=== PATIENT | female | born 1985 | race Caucasian/White ===

== ENCOUNTER 2017-07-09 01:05 | Inpatient (IN) | payer OTHER ==
[2017-07-09] MEDS ORDERED: Sodium Chloride 0.9% 10 ML Syringe FLUSH PRN (01:26)
[2017-07-09] MEDS ORDERED: Ampicillin 2 GM in Sodium Chloride 0.9% 100 ML IV ONE (01:26)
[2017-07-09] MEDS ORDERED: Nalbuphine 20 MG/1 ML Amp IVPUSH PRN (01:26)
[2017-07-09] MEDS ORDERED: Sodium Chloride 0.9% 100 ML ONE (01:28)
[2017-07-09] MEDS ORDERED: Lactated Ringers 1,000 ML IV SCH (01:30)
--- NOTE | 2017-07-09 02:26 | PCM.LDHP ---
<Mali Rooney - Last Filed: 07/09/17 08:24> L&D History of Present Illness - General Admit Problem/Dx: Patient Status Order with Admit Dx/Problem 07/09/17 01:27 Patient Status [ADT] Routine Admission Diagnosis/Problem Admission Diagnosis/Problem Normal labor Source of Information: Old Records History Limitations: Reports: No Limitations - History of Present Illness Introduction:: Patient is a 31 yo female who was admitted in labor. The patient has since delivered a baby boy via spontaneous vaginal delivery. The patient is now a 2-0-1-2. GBS +, ampicillin was given, O+. The patient had normal care, and screening was normal. The patient has a history of HSIL and cervical dysplasia Timing/Duration: Reports: sudden onset Location, : Reports: Uterus - Related Data Allergies/Adverse Reactions: Allergies Allergy/AdvReac Type Severity Reaction Status Date / Time No Known Allergies Allergy Verified 07/09/17 01:25 Home Medications: Home Meds Vit #108/Iron/FA [ One Tablet] 1 each PO DAILY 03/01/14 [ History] Past Medical History - Past Health History Medical/Surgical History: Denies Medical/Surgical History : 3 Para: 2 Other OB/BYN History: Cervical dysplasia - Past Surgical History Female Surgical History: Reports: D&CBAR Social & Family History - Tobacco Use Smoking Status *Q: Former Smoker Used Tobacco, but Quit: Yes Month Tobacco Last Used: unknown Second Hand Smoke Exposure: No - Alcohol Use Days Per Week of Alcohol Use: 0 Number of Drinks Per Day: 0 Total Drinks Per Week: 0 - Recreational Drug Use Recreational Drug Use: No H&P Review of Systems - Review of Systems: Review Of Systems: See Below General: Reports: No Symptoms HEENT: Reports: No Symptoms Pulmonary: Reports: No Symptoms Cardiovascular: Reports: No Symptoms Gastrointestinal: Reports: No Symptoms Genitourinary: Reports: No Symptoms Musculoskeletal: Reports: No Symptoms Skin: Reports: No Symptoms Psychiatric: Reports: No Symptoms Neurological: Reports: No Symptoms Hematologic/Lymphatic: Reports: No Symptoms Immunologic: Reports: No Symptoms L&D Exam - Exam Exam: See Below - Vital Signs Weight: 74.389 kg - Exam General: Alert, Oriented, Cooperative HEENT: Conjunctiva Clear, EACs Clear, EOMI, Hearing Intact, Mucosa Moist & [place] , Normal Nasal Septum, Pupils Equal Neck: Supple, Trachea Midline Lungs: Clear to Auscultation, Normal Respiratory Effort Cardiovascular: Regular Rate, Regular Rhythm Back Exam: Normal Inspection, Full Range of Motion Extremities: Normal Inspection, Normal Range of Motion, Non-Tender, No Pedal Edema, Normal Capillary Refill Skin: Warm, Dry, Intact Psychiatric: Alert, Normal Affect, Normal Mood Orders Last 24hrs: Active Orders 24 hr Category Date Time Status Patient Status [ADT] Routine ADT 07/09/17 01:27 Active Activity as Tolerated [RC] PFP Care 07/09/17 01:26 Active Communication Order [RC] ASDIRECTED Care 07/09/17 01:26 Active Heart Tones [RC] ASDIRECTED Care 07/09/17 01:27 Active Notify Provider [RC] PFP Care 07/09/17 01:26 Active Notify Provider [RC] PRN Care 07/09/17 01:26 Active Peripheral IV Care [RC] . DIRECTED Care 07/09/17 01:27 Active Vital Signs [RC] PER UNIT ROUTINE Care 07/09/17 01:26 Active Lactated Ringers [Ringers, Lactated] 1,000 ml Med 07/09/17 01:30 Active IV ASDIRECTED Nalbuphine [Nubain] Med 07/09/17 01:26 Active 10 mg IVPUSH Q2H PRN Sodium Chloride 0.9% [Saline Flush] Med 07/09/17 01:26 Active 10 ml FLUSH ASDIRECTED PRN Electronic Heart Tones Ext w TOCO [WOMSER] Oth 07/09/17 01:26 Ordered Routine Electronic Heart Tones Internal [WOMSER] Per Unit Oth 07/09/17 01:26 Ordered Routine Peripheral IV Insertion Adult [OM.PC] Routine Oth 07/09/17 01:26 Ordered Resuscitation Status Routine Resus Stat 07/09/17 01:26 Ordered Medication Orders Lactated Ringer's (Ringers, Lactated) 1,000 mls @ 100 mls/hr IV ASDIRECTED CHARITO Nalbuphine HCl (Nubain) 10 mg IVPUSH Q2H PRN PRN Reason: Pain (moderate 4-6) Sodium Chloride (Saline Flush) 10 ml FLUSH ASDIRECTED PRN PRN Reason: Keep Vein Open Assessment/Plan Comment:: Patient is a 31 yo female who was admitted in labor. The patient has since delivered a baby boy via spontaneous vaginal delivery. The patient is now a 2-0-1-2. GBS +, ampicillin was given, O+. The patient had normal care, and screening was normal. The patient has a history of HSIL and cervical dysplasia Plan: Run oxytocin Routine post- cares Pain management with ibuprofen/acetaminophen CBC in the AM <Conner Browne F - Last Filed: 07/09/17 11:14> L&D History of Present Illness - General Admit Problem/Dx: Admission Diagnosis/Problem Admission Diagnosis/Problem Normal labor H&P Review of Systems - Review of Systems: Review Of Systems: See Below L&D Exam - Exam Exam: See Below - Vital Signs Vital Signs: Last Vital Signs Temp 36.8 C 07/09/17 04:00 Pulse 84 07/09/17 04:00 Resp 18 07/09/17 04:00 BP 124/76 07/09/17 04:00 Pulse Ox Problem List Initiated/Reviewed/Updated: Yes Orders Last 24hrs: Active Orders 24 hr Category Date Time Status Activity as Tolerated [RC] PER UNIT ROUTINE Care 07/09/17 02:29 Active Activity as Tolerated [RC] PFP Care 07/09/17 01:26 Inactive Communication Order [RC] ASDIRECTED Care 07/09/17 01:26 Inactive Heart Tones [RC] ASDIRECTED Care 07/09/17 01:27 Inactive Notify Provider Vital Signs [RC] ASDIRECTED Care 07/09/17 02:29 Active Notify Provider [RC] PFP Care 07/09/17 01:26 Inactive Notify Provider [RC] PRN Care 07/09/17 01:26 Inactive Peripheral IV Care [RC] . DIRECTED Care 07/09/17 01:27 Inactive Vital Signs [RC] ASDIRECTED Care 07/09/17 02:29 Active Vital Signs [RC] PER UNIT ROUTINE Care 07/09/17 01:26 Inactive Regular Diet [DIET] Diet 07/09/17 Dinner Active CBC W/O DIFF,HEMOGRAM [HEME] Routine Lab 07/10/17 02:24 Ordered Acetaminophen [Tylenol] Med 07/09/17 02:29 Active 650 mg PO Q4H PRN Benzocaine/Menthol [Dermoplast Pain Relief [place]] Med 07/09/17 02:29 Active See Dose Instructions TOP ASDIRECTED PRN Docusate Sodium [Colace] Med 07/09/17 02:29 Active 100 mg PO BID PRN Ibuprofen [Motrin] Med 07/09/17 02:29 Active 600 mg PO Q4H PRN Lanolin [Lansinoh HPA] Med 07/09/17 02:29 Active See Dose Instructions TOP ASDIRECTED PRN Vit with Ca/FA/Iron [ Plus Iron] Med 07/09/17 09:00 Active 1 each PO DAILY Witmickey Hamilton [Tucks] Med 07/09/17 02:29 Active 1 pad TOP ASDIRECTED PRN Assess Lochia [WOMSER] Per Unit Routine Ot 07/09/17 02:29 Ordered Assess Uterine Involution [WOMSER] Per Unit Routine Ot 07/09/17 02:29 Ordered Breast Pump [WOMSER] Per Unit Routine Ot 07/09/17 02:29 Ordered Heat Therapy [OM.PC] PRN Ot 07/09/17 02:30 Ordered Heat Therapy [OM.PC] PRN Ot 07/10/17 02:30 Ordered Ice Therapy [OM.PC] Per Unit Routine Ot 07/09/17 02:29 Ordered Medication Administration Instruction [OM.PC] Routine Ot 07/09/17 02:29 Ordered Perineal Care [OM.PC] Per Unit Routine Ot 07/09/17 02:29 Ordered Sitz Bath [OM.PC] Per Unit Routine Ot 07/09/17 02:29 Ordered Resuscitation Status Routine Resus Stat 07/09/17 01:26 Ordered Medication Orders Acetaminophen (Tylenol) 650 mg PO Q4H PRN PRN Reason: mild pain or fever Benzocaine/Menthol (Dermoplast Pain Relief [place]) 0 gm TOP ASDIRECTED PRN PRN Reason: Perineal Comfort Measure Last Admin: 07/09/17 03:14 Dose: 1 applic Docusate Sodium (Colace) 100 mg PO BID PRN PRN Reason: Constipation Emollient Ointment (Lansinoh Hpa) 0 gm TOP ASDIRECTED PRN PRN Reason: Sore Nipples Ibuprofen (Motrin) 600 mg PO Q4H PRN PRN Reason: Mild pain or fever Last Admin: 07/09/17 03:13 Dose: 600 mg Prenat Multivit/[place]/Iron/Folic Ac ( Plus Iron) 1 each PO DAILY CHARITO Hamilton ([facility]) 1 pad TOP ASDIRECTED PRN PRN Reason: Hemorrhoid pain Last Admin: 07/09/17 03:15 Dose: 1 applic
[2017-07-09] MEDS ORDERED: Acetaminophen 325 MG Tab PO PRN (02:29)
[2017-07-09] MEDS ORDERED: Benzocaine/Menthol 20%-0.5% Spray 56 GM Canister TOP PRN (02:29)
[2017-07-09] MEDS ORDERED: Docusate Sodium 100 MG Cap PO PRN (02:29)
[2017-07-09] MEDS ORDERED: Lanolin 100% Cream 7 GM Tube TOP PRN (02:29)
[2017-07-09] MEDS ORDERED: Witch Hazel Medicated Pads 100/Jar TOP PRN (02:29)
--- NOTE | 2017-07-09 02:29 | PCM.SN ---
- Free Text/Narrative Note: Annie is a 31-year-old 3 now para 2012 female who is admitted in labor and delivery at complete cervical dilation, bag salomon intact uriah every 3 minutes and feeling pressure and feeling like she had to push. She apparently had been 7 cm in clinic upon last evaluation. She is group B strep positive and had been informed of her group B positive status and the recommendation for group B strep prophylaxis and induction of labor was offered to the patient. She declined at that time. She is 40-2/7 weeks gestational age at the time of onset of her labor. Patient's membranes ruptured spontaneously resulting in clear amniotic fluid. She delivered a viable, garcia, 3570 g (7 pound 13.9 ounce) male infant with Apgars of 7 and 9 and a length of 19.0 inches. She delivered over a second- degree laceration with a slight left labia majora laceration. Baby delivered in an occiput anterior position. The baby was placed on mom's abdomen. Cord was allowed to pulsate until done and then was cut. Cord blood was obtained per routine. The area of perineal laceration and labial laceration were infiltrated with approximately 15 mL of lidocaine 1%. The laceration was closed in a routine episiotomy fashion with the exception of left labial laceration which was closed with approximately 4-5 per official simple interrupted stitches. Placenta delivered intact in a Otto presentation. Some membranes did separate from the placenta at the end but were removed without problems. Umbilical cord had 3 vessels. Patient was given Pitocin IV to facilitate increase in uterine tone and decreased risk of bleeding. Estimated blood loss was 200 mL. Condition : Good. Patient plans to breast-feed
[2017-07-09] MEDS: Ibuprofen 600 MG Tab PO PRN ×2 (03:13→17:54)
[2017-07-09] MEDS ORDERED: Lidocaine 1% 50 ML MDV ONE (03:15)
[2017-07-09] MEDS: Prenatal Multivitamin with Calcium/Folic Acid/Iron Tab PO SCH (15:30)
[2017-07-10] MEDS: Ibuprofen 600 MG Tab PO PRN ×2 (03:53→16:50)
[2017-07-10] MEDS: Prenatal Multivitamin with Calcium/Folic Acid/Iron Tab PO SCH (09:55)
--- NOTE | 2017-07-10 10:47 | PCM.SN ---
- Free Text/Narrative Note: 31 yo female , post- day 1. She is O+ and group B strep positive. Patient has a history of cervical dysplasia and HSIL. Patient reports no complaints and is doing well. The patient's pain is well controlled by ibuprofen. She had inadequate antibiotic prophylaxis during labor. Will continue to monitor patient and baby. Plan to discharge tomorrow 07/11/17 if no acute changes occur.
[2017-07-11 03:13] VITALS: BP 120/57
--- NOTE | 2017-07-11 06:52 | PCM.DCSUM1 ---
Discharge Summary - Hospital Course Free Text/Narrative:: Annie is a 31-year-old 3 now para 2012 female who is admitted in labor and delivery at complete cervical dilation, bag salomon intact uriah every 3 minutes and feeling pressure and feeling like she had to push. She apparently had been 7 cm in clinic upon last evaluation. She is group B strep positive and had been informed of her group B positive status and the recommendation for group B strep prophylaxis and induction of labor was offered to the patient. She declined at that time. She is 40-2/7 weeks gestational age at the time of onset of her labor. Patient's membranes ruptured spontaneously resulting in clear amniotic fluid. She delivered a viable, garcia, 3570 g (7 pound 13.9 ounce) male infant with Apgars of 7 and 9 and a length of 19.0 inches. She delivered over a second- degree laceration with a slight left labia majora laceration. Baby delivered in an occiput anterior position. The baby was placed on mom's abdomen. Cord was allowed to pulsate until done and then was cut. Cord blood was obtained per routine. The area of perineal laceration and labial laceration were infiltrated with approximately 15 mL of lidocaine 1%. The laceration was closed in a routine episiotomy fashion with the exception of left labial laceration which was closed with approximately 4-5 per official simple interrupted stitches. Placenta delivered intact in a Otto presentation. Some membranes did separate from the placenta at the end but were removed without problems. Umbilical cord had 3 vessels. Patient was given Pitocin IV to facilitate increase in uterine tone and decreased risk of bleeding. Estimated blood loss was 200 mL. patient has done well. She is having minimal lochia, is nursing without concerns, ambulating well and voiding without problems. She is desiring discharge today. Follow-up CBC was within normal limits for the period - Discharge Data Discharge Date: 07/11/17 Discharge Disposition: Home, Self-Care 01 Condition: Good - Patient Instructions Diet: Regular Diet as Tolerated (Nursing diet with increased calcium and calories) Activity: As Tolerated (No intercourse or tampons until bleeding resolves.) Driving: May Drive Today, Do Not Drive Showering/Bathing: May Shower (May take a bath) Notify Provider of: Fever, Increased Pain, Swelling and Redness, Drainage, Nausea and/or Vomiting - Discharge Plan Home Medications: Home Meds Vit #108/Iron/FA [ One Tablet] 1 each PO DAILY 03/01/14 [ History] Acetaminophen [Tylenol] 650 mg PO Q4H PRN tablet 07/11/17 [Rx] Ibuprofen [IJD: Ibuprofen] 600 mg PO Q4H PRN tablet 07/11/17 [Rx] Referrals: Taylor Valdez MD [Physician] - (Return to clinicDr. Valdez-3-4 weeks.) - Discharge Summary/Plan Comment DC Time >30 min.: No Discharge Summary/Plan Comment: Discharge instructions: 1. Discharge home 2. Diet, activity and follow-up discussed with patient. Recommend nursing diet with increased calories and calcium. 3. Precautions given concern increased pain, bleeding, temperature, signs/ symptoms of DVT/PE. 4. Medications per home medication was printed, discussed with and given to the patient. 5. Return to clinic-Dr. Valdez-3-4 weeks weeks. Diagnosis: Term -delivered Condition: Good - Patient Data Vitals - Most Recent: Last Vital Signs Temp 36.2 C 07/11/17 03:07 Pulse 76 07/11/17 03:07 Resp 16 07/11/17 03:07 BP 120/57 L 07/11/17 03:07 Pulse Ox 99 07/11/17 03:07 Weight - Most Recent: 74.389 kg I&O - Last 24 hours: Intake & Output 07/10/17 07/10/17 07/11/17 14:59 22:59 06:59 Intake Total 200 Balance 200 Med Orders - Current: Current Medications Acetaminophen (Tylenol) 650 mg PO Q4H PRN PRN Reason: mild pain or fever Benzocaine/Menthol (Dermoplast Pain Relief [place]) 0 gm TOP ASDIRECTED PRN PRN Reason: Perineal Comfort Measure Last Admin: 07/09/17 03:14 Dose: 1 applic Docusate Sodium (Colace) 100 mg PO BID PRN PRN Reason: Constipation Emollient Ointment (Lansinoh Hpa) 0 gm TOP ASDIRECTED PRN PRN Reason: Sore Nipples Ibuprofen (Motrin) 600 mg PO Q4H PRN PRN Reason: Mild pain or fever Last Admin: 07/10/17 16:50 Dose: 600 mg Prenat Multivit/[place]/Iron/Folic Ac ( Plus Iron) 1 each PO DAILY CHARITO Last Admin: 07/10/17 09:55 Dose: 1 each [place] Joy (Tucks) 1 pad TOP ASDIRECTED PRN PRN Reason: Hemorrhoid pain Last Admin: 07/09/17 03:15 Dose: 1 applic Discontinued Medications Ampicillin Sodium 2 gm/ Sodium (Chloride) 100 mls @ 200 mls/hr IV ONETIME ONE Stop: 07/09/17 01:55 Last Admin: 07/09/17 02:24 Dose: 200 mls/hr Lactated Ringer's (Ringers, Lactated) 1,000 mls @ 100 mls/hr IV ASDIRECTED CHARITO Last Admin: 07/09/17 02:24 Dose: 100 mls/hr Sodium Chloride (Normal Saline) Confirm Administered Dose 100 mls @ as directed .ROUTE .STK-MED ONE Stop: 07/09/17 01:29 Last Admin: 07/09/17 02:29 Dose: Not Given Oxytocin 10 unit/ Lactated (Ringer's) 1,001 mls @ 500 mls/hr IV ONETIME ONE PRN Reason: Protocol Stop: 07/09/17 03:41 Last Admin: 07/09/17 02:48 Dose: 500 mls/hr Lidocaine HCl (Xylocaine 1%) 0 ml .XX ONETIME ONE Stop: 07/09/17 03:16 Last Admin: 07/09/17 03:03 Dose: 10 ml Nalbuphine HCl (Nubain) 10 mg IVPUSH Q2H PRN PRN Reason: Pain (moderate 4-6) Sodium Chloride (Saline Flush) 10 ml FLUSH ASDIRECTED PRN PRN Reason: Keep Vein Open *Q Meaningful Use (DIS) - VTE *Q VTE Criteria *Q: - Stroke *Q Stroke Criteria *Q: - AMI *Q AMI Criteria *Q:
[2017-07-11] MEDS: Prenatal Multivitamin with Calcium/Folic Acid/Iron Tab PO SCH (08:13)
[2017-07-11] MEDS: Ibuprofen 600 MG Tab PO PRN (08:14)
== END 2017-07-11 10:45 | disposition home or self-care (01) | DRG 775 ==
LOC: JD.OBCHECK 01:05 → JD.OB 01:08 → JD.OBCHECK 01:49
PROVIDERS: ADMIT Obstetrics & Gynecology; ATTEND Obstetrics & Gynecology
PROC: 10E0XZZ Delivery of Products of Conception, External Approach (ICD-10-PCS; principal; 2017-07-09)
PROC: 0KQM0ZZ Repair Perineum Muscle, Open Approach (ICD-10-PCS; 2017-07-09)
PROC: 0UQMXZZ Repair Vulva, External Approach (ICD-10-PCS; 2017-07-09)
DX: O99.824 Streptococcus B carrier state complicating childbirth (principal); O70.1 Second degree perineal laceration during delivery; Z3A.40 40 weeks gestation of pregnancy; Z37.0 Single live birth
CPT/HCPCS: 36415; 59300; 59409; 85027; A9270-GY; J0290; J2590; J7030; J7120